=== PATIENT | female | born 1970 | race Caucasian/White ===

== ENCOUNTER 2017-05-16 16:52 | Emergency (ER) | payer BC ==
[2017-05-16 17:56] LABS: #Basophils 0.1 thou/uL (0.0-0.2); #Eosinphils 0.1 thou/uL (0.0-0.7); #Lymphocytes 2.2 thou/uL (1.20-3.40); #Monocytes 0.5 thou/uL (0.11-0.59); #Neutrophils 3.3 thou/uL (1.40-6.50); %Basophils 1.1 % (0.0-1.0); %Eosinophils 2.4 % (0.0-10.0); %Lymphocytes 35.9 % (21.0-51.0); %Monocytes 7.5 % (0.0-10.0); Hematocrit 37.8 % (36.0-47.0); Mean Platelet Volume 7.3 fL (7.4-10.4); Red Blood Cell (RBC) Count 4.07 mill/uL (4.20-5.40); White Blood Cell (WBC) Count 6.3 thou/uL (4.8-10.8)
[2017-05-16 18:07] LABS: ALT (SGPT) 13 U/L (8-55); AST (SGOT) 15 U/L (5-34); Alkaline Phosphatase 61 U/L (40-150); Anion Gap 12 mmol/L (10-20); BUN (Urea Nitrogen) 11 mg/dL (7.0-18.7); Bilirubin, Total 0.5 mg/dL (0.2-1.2); Calc. Creatinine Clearance 0 mL/min (70-130); Calcium 9.3 mg/dL (7.8-10.44); Carbon Dioxide 25 mmol/L (22-29); Chloride 107 mmol/L (98-107); Estimated GFR-MDRD 71; Globulin 2.6 g/dL (2.4-3.5); Protein, Total 6.7 g/dL (6.0-8.3)
== END 2017-05-16 18:59 | disposition left against medical advice (07) ==
LOC: SCSER 16:52
DX: F41.1 Generalized anxiety disorder (principal); Z79.899 Other long term (current) drug therapy
CPT/HCPCS: 80053; 85025

== ENCOUNTER 2017-07-30 14:00 | Outpatient (CLI) | payer BC | END 2017-07-30 14:01 | disposition home or self-care (01) | LOC: BICRAD 14:00 | PROVIDERS: ATTEND Chiropractor | DX: M25.561 Pain in right knee (principal); M17.11 Unilateral primary osteoarthritis, right knee ==

== ENCOUNTER 2017-10-29 15:36 | Outpatient (CLI) | payer BC | END 2017-10-29 15:37 | disposition home or self-care (01) | LOC: BICRAD 15:36 | PROVIDERS: ATTEND Chiropractor | DX: M79.671 Pain in right foot (principal); R22.41 Localized swelling, mass and lump, right lower limb; S92.511A Displaced fracture of proximal phalanx of right lesser toe(s), initial encounter for closed fracture; W22.8XXA Striking against or struck by other objects, initial encounter ==

== ENCOUNTER 2019-03-05 15:22 | Outpatient (CLI) | payer BC ==
--- NOTE | 2019-03-05 16:09 | ULT ---
ULTRASOUND WITH DOPPLER DUPLEX VENOUS LOWER EXTREMITY LEFT CPT: 79704 ICD-10-PCS: B54D HISTORY: Edema, new onset. TECHNIQUE: Color flow Doppler, spectral waveform analysis of pulsed Doppler, and greer-scale imaging with pramod danyel and augmentation, were used to evaluate the left common femoral, femoral, popliteal, posterior t ibial, and superficial femoral, veins; and the proximal portions of the profunda femoral and greater saphenous, veins. FINDINGS: There is appropriate compressibility and flow within the imaged deep vein system of the left lower ex tremity. IMPRESSION: No DVT. POS: C
== END 2019-03-05 15:23 | disposition home or self-care (01) ==
LOC: BICULT 15:22
DX: M79.89 Other specified soft tissue disorders (principal); M79.605 Pain in left leg; R06.02 Shortness of breath; R63.5 Abnormal weight gain; Z79.890 Hormone replacement therapy

== ENCOUNTER 2020-03-16 13:20 | Outpatient (CLI) | payer BC ==
--- NOTE | 2020-03-16 14:36 | RAD ---
RIGHT FOOT 3 VIEWS: Date: 03/16/2020 HISTORY: Right foot pain. COMPARISON: 10/29/2017. FINDINGS/IMPRESSION: There is an old fracture of the base of the proximal phalanx of the little toe/fifth digit. No acute fracture, dislocation, or bony destruction is seen. Posterior and plantar calcaneal spurs are present . There is soft tissue swelling adjacent to the first and fifth MTP joints. POS: OFF
== END 2020-03-16 13:21 | disposition home or self-care (01) ==
LOC: BICRAD 13:20
DX: M79.671 Pain in right foot (principal); M77.31 Calcaneal spur, right foot; M79.89 Other specified soft tissue disorders; Z87.81 Personal history of (healed) traumatic fracture

== ENCOUNTER 2022-05-13 09:58 | Outpatient (CLI) | payer BC | END 2022-05-13 09:59 | disposition home or self-care (01) | LOC: SCSRAD 09:58 | PROVIDERS: ATTEND Chiropractor | DX: M54.50 Low back pain, unspecified (principal) | CPT/HCPCS: 72100 ==